=== PATIENT | female | born 1955 | race Caucasian/White ===

== ENCOUNTER 2022-06-27 08:05 | Inpatient (IN) | payer MEDICARE, BC, SELFPAY ==
--- OUTSIDE RECORDS SUMMARY | 2022-05-28 09:44 | XMS_ITS | Clinical Summary ---
:1955 Author Organization [employer] [facility] [place] [address] Care Team Providers Name Role Phone Kayla Muniz DO Primary Care Provider Allergies No known active allergies Medications Medication Sig Dispensed Refills Start End Status Date Date cholecalciferol Take 1 0 Acti ve (VITAMIN D) 1,000 unit capsule by 5 capsule mouth once daily. ibuprofen (ADVIL; Take 1 0 Ac tive MOTRIN) 400 mg tablet by 9 tabletIndications: mouth every Uterovaginal prolapse, 6 hours. complete triamcinolone Apply 454 g 0 Active (ARISTOCORT; KENALOG) topicaly 1 0.1 % cream twice daily fluorouracil 5% topical Apply a 40 g 1 Active (EFUDEX) 5 % cream light coat 1 to arms and chest one day per week. amLODIPine (NORVASC) 5 Take 1 90 Tablet 3 Active mg tabletIndications: Tablet (5 2 Essential hypertension mg) by mouth once daily. hydroCHLOROthiazide Take 1 30 Tablet 0 Active (HCTZ) 25 mg Tablet (25 2 tabletIndications: mg) by mouth Essential hypertension once daily. losartan (COZAAR) 50 mg Take 1 180 Tablet 3 Active tabletIndications: Tablet (50 2 Essential hypertension mg) by mouth two times daily. finasteride (PROSCAR) 5 Take 1 90 Tablet 2 Active mg tablet Tablet (5 2 mg) by mouth once daily. finasteride (PROSCAR) 5 Take 90 Tablet 2 Discontinued mg tablet one-half 1 022 (Reorder tablet daily (E-canc el not sent)) amLODIPine (NORVASC) 5 Take 1 90 Tablet 3 Discontinued mg tabletIndications: Tablet (5 1 022 (Reorder Essential hypertension mg) by mouth (E-cancel not once daily. sent)) losartan (COZAAR) 50 mg Take 1 180 Tablet 3 05/18 Discontinued tabletIndications: Tablet (50 1 022 (Reorder Essential hypertension mg) by mouth (E-cancel not 2 times sent)) daily. hydroCHLOROthiazide Take 1 30 Tablet 0 Discontinued (HCTZ) 25 mg Tablet (25 2 022 (Reord er tabletIndications: mg) by mouth (E-cancel not Essential hypertension once daily. 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 05/10/2019 HTN (hypertension) 02/10/2013 Eczema 02/10/2013 Myopia 09/14/2011 Encounters Date Type Specialty Care Team Description 05/18/2022 Preop Visit Kayla Muniz DO Pre-O p Exam (Bilateral knee surgery 05/28/20) 05/18/2022 Travel from Last 3 Months Immunizations Name Administration Dates Next Due Influenza, IIV3 (Age >=3 years) 05/31/2009 Influenza, IIV4 07/04/2017, 06/12/2016 Influenza, IIV4 (=>6mos) MDV 07/04/2017 Influenza, Inactivated IIV3 (Age 65+ Years) Preserv 07/03/20 19, 08/15/2018 Free Pneumococcal Poly,23-Valent (Pneumovax) 07/29/2020 Td, Preservative Free (age >= 7 Years) 08/30/2006 Tdap 07/16/2014 Tuberculin (PPD) 03/02/2015 Zoster (Zostavax-ZVL, live) 07/16/2014 Family History Medical History Relation Name Comments Hypertension Brother Heart attack Father Hypertension Father Hypertension Maternal Grandfather Hypertension Maternal Grandmother Hypertension Mother Hypertension Paternal Grandfather Hypertension Paternal Grandmother Hypertension Sister sisters x2 Heart attack Son Relation Name Status Comments Brother Father Maternal Grandfather Maternal Grandmother Mother Paternal Grandfather Paternal Grandmother Sister Son ND Social History Tobacco Use Types Packs/Day Years Used Date Never Smoker Smokeless Tobacco: Never Used Tobacco Cessation: Counseling Given: Yes Alcohol Use Standard Drinks/Week Comments Yes 0 (1 standard drink = 0.6 oz pure alcoho l) occasional Alcohol Habits Answer Date Recorded How often do you have a drink containing alcohol? Not asked How many drinks containing alcohol do you have on a typical Not asked day when you are drinking? How often do you have six or more drinks on one occasion? No t asked Comment: occasional 02/10/2013 Sex Assigned at Date Recorded Not on file COVID-19 Exposure Response Date Recorded In the last 10 days, have you been in contact with No / Unsu re 05/18/2022 10:39 AM CDT someone who was confirmed or suspected to have Coronavirus/COVID-19? Obstetrics History Para Term AB IAB SAB Ectopic Multiple Living Live Births 3 3 3 3 3 Date Outcome GA Total Labor/2nd/3rd Weight Sex Delivery Anes PTL Jackie A 1 A5 Name Clin Labor 06/22 Term 4h 00m 3.83 kg Vag Emily /1975 (8 lb 7 ng oz) Comments: episiotomy 10/21/1977 Term 2h 00m 4.62 kg (10 lb 3 oz) Vag L iving 10/06/1978 Term 2h 00m 4.51 kg (9 lb 15 oz) Vag L iving Last Filed Vital Signs Vital Sign Reading Time Taken Comments Blood Pressure 168/82 05/18/2022 10:51 AM CDT Pulse 78 05/18/2022 10:51 AM CDT Temperature 36.9 ??C (98.5 ??F) 05/18/2022 10:51 AM CDT Respiratory Rate 16 07/31/2019 8:[address] [facility] Oxygen Saturation 99% 05/18/2022 10:51 AM CDT Inhaled Oxygen Concentration - - Weight 82.2 kg (181 lb 4.8 oz) 05/18/2022 10:51 AM CDT Height 151 cm (4' 11.45) 08/21/2021 10:[address] [facility] Body Mass Index 36.07 08/21/2021 10:[address] [facility] Plan of Treatment Health Maintenance Due Date Last Done Comments COVID-19 vaccine series (#1) 1955 Zoster (shingles) series for age 0109/10/2014 07/16/2014 50+ (2 of 3) Pneumococcal series for age 65+ (2 07/29/2021 07/29/2020 - PCV) Influenza for age 65+ 05/10/2022 07/03/2019, 08/15/2018, 07/04/2017, Additional history exists BMI (ht and wt on same day) for 08/21/2022 08/21/2021, 07/11, age 18+ 07/03/2019, Additional history exists Depression screening for age 12+ 08/21/2022 08/21/2021, , 08/19/2018, Additional history exists Medicare Wellness for age 65+ 08/21/2022 08/21/2021 Mammogram for age 45-75 09/05/2022 09/05/2021, 08/16/2014 Fecal testing non-DNA 09/06/2022 09/06/2021, 08/25/2020, (FIT,FOBT,iFOBT) for age 45-75 07/09/2019, Addit ional history exists Tetanus booster 07/16/2024 07/16/2014, 08/30/2006 Lipids for age 45-75 09/05/2026 09/05/2021, 07/29/2020, 07/03/2019, Additional history exists Tdap Completed 07/16/2014 Hepatitis C screening for age Completed 07/03/2019 18-79 DEXA/DXA scan for age 65+ Completed 09/05/2021 Procedures Procedure Name Priority Date/Time Associated Comments Diagnosis EKG 12 LEAD Routine 05/18/2022 1:42 PM Pre-op exam CDT UT READING EKG - NO Routine 05/18/2022 1:41 PM Pre-op exam CHARGE, COMP ONLY CDT HEMOGLOBIN Routine 05/18/2022 11:55 AM Pre-op exam Results for this CDT procedure are i n the results section. BASIC METABOLIC Routine 05/18/2022 11:55 AM Pre-op exam Resul ts for this PANEL CDT procedure are i n the results section. from Last 3 Months Results EKG 12 LEAD (05/18/2022 1:42 PM CDT) Narrative This result has an attachment that is no t available. Kayla Muniz DO EKG ORD UT READING EKG - NO CHARGE, COMP ONLY (05/18/2022 1:41 PM CDT) Kayla Muniz DO PB - PROVIDER READINGS HEMOGLOBIN (05/18/2022 11:55 AM CDT) P athologist Signature HEMOGLOBIN 13.2 12.0 - 16.0 05/18/2022 [facility] g/dL 11:58 AM CDT [facility] MCV 94 80 - 100 fL 05/18/2022 [facility] 11:58 AM CDT [facility] Specimen Anatomical Collection Method / Collection Time Recei melinda Time (Source) Location / Volume Laterality Blood BLOOD SPECIMEN / Venipuncture / 05/18/2022 11:55 05/18 Unknown Unknown AM CDT 11:55 AM CDT Kayla Muniz DO HEMATOLOGY Performing Organization Address City/State/ZIP Code Phon e Number [facility] [email or web address] [address] [place] [address] (ABNORMAL) BASIC METABOLIC PANEL (05/18/2022 11:55 AM CDT) Analysis Performed At Patho logist Time Signature SODIUM 139 135 - 145 05/19/2022 [facility] mmol/L 2:53 AM CDT [facility] POTASSIUM 3.9 3.5 - 5.0 05/19/2022 [facility] mmol/L 2:53 AM CDT [facility] CHLORIDE 106 98 - 110 05/19/2022 [facility] mmol/L 2:53 AM CDT [facility] CO2,TOTAL 23 21 - 31 05/19/2022 [facility] mmol/L 2:53 AM CDT [facility] ANION GAP 10 5 - 18 05/19/2022 [facility] 2:53 AM CDT [facility] GLUCOSE 101 (H) 65 - 100 05/19/2022 [facility] mg/dL 2:53 AM CDT [facility] CALCIUM 9.9 8.5 - 10.5 05/19/2022 [facility] mg/dL 2:53 AM CDT [facility] BUN 20 8 - 25 05/19/2022 [facility] mg/dL 2:53 AM CDT [facility] CREATININE 0.79 0.57 - 05/19/2022 [facility] 1.11 mg/dL 2:53 AM CDT [facility] BUN/CREAT RATIO 25 (H) 10 - 20 05/19/2022 [facility] 2:53 AM CDT [facility] eGFR 81 (L) >90 05/19/2022 [facility] mL/min/1.7 2:53 AM CDT [facility] Comment: As of 2021, eGFR is calcu lated by the CKD-EPI creatinine equation without race adjustment. eGFR can be inf luenced by muscle mass, exercise, and diet. The reported eGFR is an estimation only and is only applicable if the renal function is stable. Specimen Anatomical Collection Method / Collection Time Recei melinda Time (Source) Location / Volume Laterality Blood BLOOD SPECIMEN / Venipuncture / 05/18/2022 11:55 05/18 Unknown Unknown AM CDT 11:55 AM CDT Kayla Muniz DO CHEMISTRY Performing Organization Address City/State/ZIP Code Phon e Number [facility] [address] [place] [address] [facility] from Last 3 Months Insurance Payer Benefit Plan / Subscriber ID Effective Dates Phone Addre ss Type Group MEDICARE PART B MEDICARE PART B [id number] 2018-Presen ATTN: CLAIMS - HB USE ONLY HB ONLY t [address] [place] [address] MEDICARE PART A MEDICARE PART A [id number] 2019-Pres ATTN: CLAIMS - HB USE ONLY HB ONLY ent [address] [place] [address] BLUE CROSS [place] BLUE CROSS [id number] 2018-Presen [address] [address] [address] [place], [place] ONLY [id number] BLUE CROSS BLUE CROSS [id number] 2018-Presen [address] [address] [place], [place] ONLY [id number] Advance Directives Latest Code Status on File Code Status Date Activated Date Inactivated Comments Full Code 07/30/2019 5:36 AM 07/31/2019 11:53 AM Care Teams Photoresist Printer Relationship Specialty Start Date End Date Kayla Muniz DO PCP - General Family Practice 09/30/[address] [place] [address]
[2022-06-27] VITALS (27 sets, daily range): BP systolic 71–151; BP diastolic 48–94; PULSE 63–111; RESP 12–18; TEMP 35.6–36.6; O2SAT 92–98; BMI 35.4
[2022-06-27] MEDS: CELECOXIB 200 MG CAPSULE PO ×2 (08:30→20:14)
[2022-06-27] MEDS: ACETAMINOPHEN 500 MG TABLET 1000 MG PO ×2 (08:30→17:24)
[2022-06-27] MEDS: LACTATED RINGERS 1000 ML 1,000 ML 100 ML IV ×2 (08:45→12:17)
[2022-06-27] MEDS: SODIUM CHLORIDE 0.9 % (FLUSH) 10 ML SYRINGE IVF (08:45)
[2022-06-27] MEDS: fentaNYL 100 MCG/2 ML inj IVP (10:30)
[2022-06-27] MEDS: MIDAZOLAM HCL 1 MG/ML inj IVP (10:30)
--- NOTE | 2022-06-27 10:32 | SUR.PREOP ---
TIME?OUT:?1029 PT/Tennille ESPOSITO RN/Tavia NATH MDA?VERIFICATION?OF?SURGICAL?SITE,?PROCEDURE,?AND?CONSENT OBTAINED?PRIOR?TO?INVASIVE?PROCEDURE.
--- NOTE | 2022-06-27 11:05 | W.PM.NB ---
Nerve Block Nerve Block Date Seen: 06/27/22 Type of block requested by surgeon for post-operative analgesia: adductor canal Side: bilateral Time out performed: Yes Verification of patient name: Yes Verification of date of : Yes Site marking: site marked Name of person performing procedure: Keron Continuous monitoring Was continuous monitoring of O2 sat, B/P, potline monitor, recorded every 15 minutes?: Yes Procedure Checklist: sterile prep, needles and gloves Ultrasound guided. Images saved: Yes Medications given in 5ml increments after negative aspiration: Marcaine %: 0.25 mL: 46 Needle gauge: 20 and Exparel mL: 14 Needle gauge: 20 Patient tolerated procedure well: Yes Additional comments: Needle noted adjacent to nerve Block Charges Block Charge (with Pro Fee): Femoral Nerve Use of Ultrasound Machine for Block: Yes- US Guidance/pain block
--- NOTE | 2022-06-27 11:06 | W.PM.NB ---
Nerve Block Nerve Block Date Seen: 06/27/22 Type of block requested by surgeon for post-operative analgesia: geniculars Side: bilateral Time out performed: Yes Verification of patient name: Yes Verification of date of : Yes Site marking: site marked Name of person performing procedure: Keron Continuous monitoring Was continuous monitoring of O2 sat, B/P, environmental monitoring technician, recorded every 15 minutes?: Yes Procedure Checklist: sterile prep, needles and gloves Medications given in 5ml increments after negative aspiration: Marcaine %: 0.25 mL: 14 Needle gauge: 25 and Exparel mL: 6 Needle gauge: 25 Patient tolerated procedure well: Yes Block Charges Block Charge (with Pro Fee): Genicular Nerve Block Use of Ultrasound Machine for Block: No
[2022-06-27] MEDS: CEFAZOLIN 2 GM in 0.9 % SODIUM CHLORIDE Mini-bag 100 ML IVPB ×2 (11:44→17:48)
--- NOTE | 2022-06-27 11:56 | CRLHL7_ITS ---
For Patients: As a result of the Cures Act, medical imaging exams and procedure reports are released immediately into your electronic medical record. You may view this report before your referring provider. If you have questions, please contact your health care provider. Indication: POST-OP Technique: Two views right knee Findings/Impression: Hardware from a right total knee arthroplasty is in satisfactory position. Bone alignment is normal. No sign of acute fracture. Postop changes are within normal limits. Dictated by Caleb Tompkins MD @ 06/28/2022 10:13:53 AM (Electronically Signed)
--- NOTE | 2022-06-27 11:56 | CRLHL7_ITS ---
For Patients: As a result of the Cures Act, medical imaging exams and procedure reports are released immediately into your electronic medical record. You may view this report before your referring provider. If you have questions, please contact your health care provider. Indication: POST-OP Technique: Two views left knee Findings/Impression: Hardware from a left total knee arthroplasty is in satisfactory position. Bone alignment is normal. No sign of acute fracture. Postop changes are within normal limits. Dictated by Caleb Tompkins MD @ 06/28/2022 10:13:02 AM (Electronically Signed)
--- NOTE | 2022-06-27 13:22 | REH.PT ---
Will start PT 10 AM
--- NOTE | 2022-06-27 15:53 | PM.ORPRC ---
Procedure Note Date of procedure: 06/27/22 Procedure: PREOPERATIVE DIAGNOSIS: 1. Bilateral knee osteoarthritis, primary, severe POSTOPERATIVE DIAGNOSIS: 1. Bilateral knee osteoarthritis, primary, severe PROCEDURE: 1. Bilateral total knee arthroplasty SURGEON: Darwin Stark MD. NEWSPAPER EDITOR MANAGING: Lawrence Gray PA-C - Of note, an assistant to the vice president was critical for this case to aid in patient positioning, tissue retraction, limb manipulation/positioning, patient safety, and closure. ANESTHESIA: Spinal anesthetic IMPLANTS: DePuy J&J all cemented TKA - Attune Right: PS femur size 5 narrow, tibia size 3, 5 mm poly spacer, 32 mm patella Left: PS femur size 4 narrow, tibia size 3, 5 mm poly spacer, 32 mm patella TOURNIQUET: 97 minutes on the right at 300 torr; 98 minutes on the left at 300 torr COMPLICATIONS: None evident INDICATIONS: The patient is a pleasant 67 old female who has experienced severe bilateral knee pain and difficulty bearing weight. Workup included x-rays which revealed severe osteoarthrosis in both knees. Given the deformity, the dysfunction, and the pain, as well as the failure of nonoperative management, recommendation was made for surgery. DESCRIPTION OF PROCEDURE: Following a thorough discussion of risks, benefits, and alternatives consent was obtained and the right knee was marked. The patient was brought to the operating room and placed supine on the operating table. Induction of anesthesia was undertaken. 2 g IV Ancef and 1 g tranexamic acid was administered within 1 hr of incision preoperatively. Proper time-out was performed identifying proper patient, site, procedure. Bilateral operative extremities were prepped and draped in the appropriate sterile fashion using ChloraPrep after the patient was positioned supine with all bony prominences well padded. The left leg was initially covered with an extra draped and we began on the right TKA. A longitudinal, anterior, midline skin incision was made starting approximately 3cm proximal to the superior pole of the patella and advanced distal to the tibial tubercle. Full-thickness chondral loss within the medial compartment with erosion in the medial femur and tibia. Subchondral sclerotic bone as well. Significant chondromalacia remaining compartments also noted. Large effusion upon entering the joint. A median parapatellar arthrotomy was created and a large effusion evacuated. A medial subperiosteal sleeve was created with knife, duron elevator and curved osteotome. The retropatellar fat pad was resected and the synovium in the suprapatellar pouch excised to visualize the anterior femoral cortex. Femoral preparation was performed via an intramedullary guide. Step drill allowed access into the femoral canal. The canal was suctioned, irrigated, suction, and this process repeated. The distal cutting guide was placed with 5 ? of valgus and 11 mm cut on the distal femur due to flexion contracture of 5-7 degrees. Femur was sized using a posterior referencing guide in 3? of external rotation based on the posterior femoral condylar axis and trans epicondylar access/Whitesides line . This found have a best fit with the sizing noted above. The 4 in 1 cutting block was then placed, and the distal femur shaped accordingly. The box cut was then created and the trial implant inserted to confirm appropriate fit. We turned our attention to the proximal tibia. Extramedullary guide was utilized for cutting with the goal of being 90 degree cut from the mechanical axis of the tibia in the varus/valgus plane utilizing tibial crest as the primary alignment. Initially a 1 mm resection was performed from the medial tibial plateau. Ultimately, balancing was achieved in both flexion and extension in both varus and valgus. The knee was able to achieve full extension as well comfortably. The patella was initially measured and found have a thickness of 20 mm. It was resected back to approximately 14 mm. It was sized to be a best fit with as noted above. This was drilled, trial placed. All trials were placed and found to have an excellent stability and balance. At this stage, trial implants were removed, the knee was thoroughly irrigated with normal saline after injecting the posterior capsule with Marcaine with epi, and the cement was mixed. After irrigation, the knee was thoroughly dried, and cement placed, with the real tibial and femoral implants placed along with the patella. Trial poly spacer was placed and confirmed to have excellent range of motion and full extension, and the real poly spacer opened and inserted. All extra cement was removed, and a 3 min Betadine soak performed. Finally, a final irrigation round with normal saline was performed. Closure performed with 0 Vicryl and #0 Stratafix for the quad tendon/retinaculum. The tourniquet was deflated, and 2-0 Vicryl for the subcutaneous and 4-0 Monocryl for subcuticular closure was completed. Dressings were applied and attention was turned to the contralateral left side. This same process was utilized on the contralateral side including same approach, same dissection, same femoral tunnel access and irrigation, extramedullary guide for the tibia, with a similar process for cutting depths, and sizing of femoral & tibial implants. Of note, this contralateral knee showed again severe medial compartment chondral loss including erosion in the medial femur and tibia. Significant chondromalacia remaining 2 compartments also noted. Again large effusion encountered. The knee was placed through range of motion & found to be stable to varus and valgus stress at 0 and 30? as well as with anterior vending machine coin collector all ranges at 15 -30 degree increments. Again a 3 min Betadine soak was performed when the real poly had been opened and inserted, and all remaining cement had been removed. Finally, final round of irrigation was completed with normal saline and closure performed as above with 0 Vicryl, # 0 Stratafix for the quad tendon/retinaculum, 2-0 Vicryl for subcutaneous and 4-0 Monocryl for subcuticular closure. PLAN: 1. Weight bear as tolerated operative extremities. 2. 23 hr perioperative antibiotics. 3. Ice. 4. PT/OT consults for ambulation assistance/mobility education. 5. Social work consult for discharge planning. 6. DVT prophylaxis with at SCDs, [place] Hose, and aspirin twice daily.
--- NOTE | 2022-06-27 16:01 | W.ANESCHARGE ---
Anesthesia Charges Start Date/Time Anesthesia Start Date: 06/27/22 Anesthesia Start Time: 11:34 Stop Date/Time Anesthesia Stop Date: 06/27/22 Anesthesia Stop Time: 16:06 Summary Emergency: No
--- NOTE | 2022-06-27 16:08 | W.ANESCHARGE ---
Anesthesia Charges Start Date/Time Anesthesia Start Date: 06/27/22 Anesthesia Start Time: 11:34 Stop Date/Time Anesthesia Stop Date: 06/27/22 Anesthesia Stop Time: 16:06 Summary Emergency: No
--- NOTE | 2022-06-27 16:55 | SUR.PHASEI ---
patient met discharge criteria per anesthesia
[2022-06-27] MEDS: HYDROmorphone 0.5 mg/0.5 ml inj IVP (17:23)
--- NOTE | 2022-06-27 17:23 | PM.IMPN1 ---
Progress Note: A&P Assessment and plan (1) Osteoarthritis of knees, bilateral: Problem details: Severe - [id number]-[id number] -- Varus malalignement Status: Acute (2) Hypertension: Status: Acute (3) Obesity (BMI 30-39.9): Problem details: BMI 35.2 Status: Acute Plan 1. POD #0 s/p bilateral total knee arthoplasty under spinal anesthesia -pain control; diet; dvt ppx per surgery -bmp and hgb in am 2. Hx of HTN; resume antihypertensives in AM 3. DVT ppx-Aspirin BID Time Spent With Patient Total time spent: 20minutes Subjective Date Seen: 06/27/22 Interval history: The patient is doing well following surgery Denies chest pain Denies nausea Denies vomiting has not ordered dinner yet Exam Narrative: Exam Narrative: Gen: No acute distress HEENT: NCAT EOMI MMM CV: RRR s1s2 L: CTAB Abd: Soft, nt, nd neuro: Alert, oriented Const: Vital Signs, click to edit/add: Vital Signs - 24 hr 06/27/22 08:38 06/27/22 10:30 06/27/22 10:35 Temperature 97.8 F Pulse Rate 111 H 88 80 Respiratory Rate 18 18 16 Blood Pressure 147/78 H 151/94 H 104/74 Blood Pressure [Ri ght Arm] Pulse Oximetry 98 97 92 Oxygen Delivery Me thod Room Air Nasal Cannula Nasal Cannula Oxygen Flow Rate 2 2 06/27/22 10:40 06/27/22 10:45 06/27/22 11:00 Temperature Pulse Rate 89 73 73 Respiratory Rate 16 16 16 Blood Pressure 108/73 112/69 126/71 Blood Pressure [Ri ght Arm] Pulse Oximetry 95 95 97 Oxygen Delivery Me thod Nasal Cannula Nasal Cannula Nasal Cannula Oxygen Flow Rate 2 2 2 06/27/22 11:15 06/27/22 16:03 06/27/22 16:05 Temperature 96.4 F L 96.4 F L Pulse Rate 79 81 66 Respiratory Rate 16 12 13 Blood Pressure 103/75 71/51 L 86/48 L Blood Pressure [Ri ght Arm] Pulse Oximetry 92 96 98 Oxygen Delivery Me thod Nasal Cannula Oxygen Flow Rate 2 06/27/22 16:10 06/27/22 16:15 06/27/22 16:20 Temperature 96.4 F L 96.4 F L 96.4 F L Pulse Rate 70 68 67 Respiratory Rate 13 14 18 Blood Pressure 102/66 112/75 120/73 Blood Pressure [Ri ght Arm] Pulse Oximetry 96 96 96 Oxygen Delivery Me thod Oxygen Flow Rate 06/27/22 16:25 06/27/22 16:30 06/27/22 16:35 Temperature 96.4 F L 96.6 F L 96.6 F L Pulse Rate 63 67 73 Respiratory Rate 15 15 15 Blood Pressure 104/63 110/74 114/50 L [facility] Pulse Oximetry 94 97 97 Oxygen Delivery Me thod Oxygen Flow Rate 06/27/22 16:40 06/27/22 16:45 Temperature 96.6 F L 96.0 F L Pulse Rate 68 69 Respiratory Rate 16 16 Blood Pressure 119/60 Blood Pressure [Ri ght Arm] 139/76 Pulse Oximetry 97 Oxygen Delivery Me thod Room Air Oxygen Flow Rate
--- NOTE | 2022-06-27 19:19 | PC.NURSE ---
Pt up to m/s floor at 1645- awake and alert. Tylenol and dilaudid given for pain. VSS - pain highest reported at 5/10 but improved with meds. Up to BR at 1830- pt insisted to walk to BR with Ax1 and tolerated this well after dangling at bedside. Surgical dressings CDI. Cryo cuff's filled at 1900. ice packs to back of knees for short time for pain relief. pt tolerating regular diet and LS CTA. Spouse, Gurjit at bedside and very supportive. Report given to MARCK Nicholas.
[2022-06-27] MEDS: SENNOSIDES 1 TAB TABLET 2 TAB PO (20:14)
[2022-06-27] MEDS: HYDROmorphone 2 MG TABLET PO (20:14)
[2022-06-27] MEDS: LOSARTAN POTASSIUM 50 MG TABLET PO (20:15)
[2022-06-27] MEDS: ASPIRIN 81 MG TABLET EC PO (20:15)
[2022-06-27] MEDS: ONDANSETRON 2 MG/ML inj 4 MG IVP (22:39)
[2022-06-28] MEDS: ACETAMINOPHEN 500 MG TABLET 1000 MG PO ×3 (00:34→13:12)
[2022-06-28] MEDS: HYDROmorphone 2 MG TABLET PO ×4 (00:35→13:13)
[2022-06-28] MEDS: CEFAZOLIN 2 GM in 0.9 % SODIUM CHLORIDE Mini-bag 100 ML IVPB ×2 (02:34→09:52)
[2022-06-28 03:00] VITALS: BP 116/75; PULSE 77; RESP 18; TEMP 36.5; O2SAT 95
[2022-06-28] MEDS: ONDANSETRON 2 MG/ML inj 4 MG IVP ×2 (06:27→10:00)
[2022-06-28 07:05] LABS: Basophils Percent Auto 0.1 % (0.0-3.0); Hematocrit 32.6 % (33.0-51.0); Hemoglobin* 10.9 gm/dL (12.0-16.0); Immature Granulocytes Abs Auto 0.03 K/uL (0.00-0.30); Mean Corpuscular HGB Conc 33 gm/dL (32-36); Mean Corpuscular Hemoglobin 31 pg (26-34); Mean Corpuscular Volume 93 fL (80-100); Neutrophils Percent Auto 85.7 % (42.0-72.0); Platelet Count* 370 K/uL (140-440); RDW Coefficient of Variation % 12.7 % (11.5-15.5); Red Blood Count 3.49 m/uL (4.00-5.20); White Blood Count* 15.67 K/uL (4.50-11.00)
[2022-06-28 07:07] LABS: Slide Review Reflex No
[2022-06-28 07:29] LABS: Potassium* 3.6 mmol/L (3.6-5.1); Sodium* 128 mmol/L (135-149)
[2022-06-28 07:32] LABS: Blood Urea Nitrogen* 18 mg/dL (7-30); Creatinine* 0.7 mg/dL (0.5-1.5); Est. Creatinine Clearance* 38.14; Estimated Glomerular Filt Rate 94 ml/min
[2022-06-28 07:45] VITALS: BP 130/78; PULSE 78; RESP 18; TEMP 36.6; O2SAT 98
[2022-06-28] MEDS: hydroCHLOROthiazide 25 MG TABLET PO (08:31)
[2022-06-28] MEDS: ASPIRIN 81 MG TABLET EC PO (08:31)
[2022-06-28] MEDS: SENNOSIDES 1 TAB TABLET 2 TAB PO (08:31)
[2022-06-28] MEDS: AMLODIPINE 5 MG TABLET PO (08:31)
[2022-06-28] MEDS: CELECOXIB 200 MG CAPSULE PO (08:31)
[2022-06-28] MEDS: LOSARTAN POTASSIUM 50 MG TABLET PO (08:31)
--- NOTE | 2022-06-28 08:54 | P.DS_ITS ---
DS: Providers Provider Date Seen: 06/28/22 Date of admission: 06/27/22 08:05 Primary care physician: Kayla Muniz DO Admitting Clinician: Darwin Stark MD Consults: PT, OT, and hospitalist team Attending Physician on discharge: Darwin Stark MD Date of Discharge: 06/28/22 DS: Diagnosis Discharge Diagnosis (1) Osteoarthritis of knees, bilateral: Status: Acute (2) Status post bilateral knee replacements: Status: Acute DS: Summary Hospital Course Hospital Course: 67-year-old female presented to the hospital on 06/27/2022 for elective bilateral TKAs. Patient did well postoperatively and comorbidities remained stable. She did quite well with therapies, was tolerating p.o. intake, and motivated for discharge on postoperative day 1. No changes made to home medications upon discharge. Prophylaxis and pain management per Orthopedic surgery team. Patient will be discharged home with routine follow-up with therapies, orthopedic surgery, and PCP. Status at Discharge Overall status at discharge: patient is progressing back to baseline Time Spent with Patient Time attestation: Total time spent providing and/or coordinating discharge services: Time spent: Less than 30 minutes Exam Narrative: Exam Narrative: GEN: Alert and oriented, sitting comfortably in bedside chair and eating breakfast HEENT: Normal external ears, EOMIs bilaterally, no scleral icterus CV: RRR, No concerning murmurs, rubs, or gallops R: LCTA bilaterally without concerning wheezing, rales, or rhonchi Ext: wwp, no concerning edema Skin: No concerning skin lesions or rashes on exposed skin Neuro: Nonfocal Psych: Appropriate Const: Vital Signs, click to edit/add: Vital Signs - 24 hr 06/27/22 10:30 06/27/22 10:35 06/27/22 10:40 Temperature Pulse Rate 88 80 89 Pulse Rate [Pulse Oximeter] Respiratory Rate 18 16 16 Blood Pressure 151/94 H 104/74 108/73 Blood Pressure [Ri ght Arm] Pulse Oximetry 97 92 95 Oxygen Delivery Me thod Nasal Cannula Nasal Cannula Nasal Cannula Oxygen Flow Rate 2 2 2 06/27/22 10:45 06/27/22 11:00 06/27/22 11:15 Temperature Pulse Rate 73 73 79 Pulse Rate [Pulse Oximeter] Respiratory Rate 16 16 16 Blood Pressure 112/69 126/71 103/75 Blood Pressure [Ri ght Arm] Pulse Oximetry 95 97 92 Oxygen Delivery Me thod Nasal Cannula Nasal Cannula Nasal Cannula Oxygen Flow Rate 2 2 2 06/27/22 16:03 06/27/22 16:05 06/27/22 16:10 Temperature 96.4 F L 96.4 F L 96.4 F L Pulse Rate 81 66 70 Pulse Rate [Pulse Oximeter] Respiratory Rate 12 13 13 Blood Pressure 71/51 L 86/48 L 102/66 Blood Pressure [Ri ght Arm] Pulse Oximetry 96 98 96 Oxygen Delivery Me thod Oxygen Flow Rate 06/27/22 16:15 06/27/22 16:20 06/27/22 16:25 Temperature 96.4 F L 96.4 F L 96.4 F L Pulse Rate 68 67 63 Pulse Rate [Pulse Oximeter] Respiratory Rate 14 18 15 Blood Pressure 112/75 120/73 104/63 Blood Pressure [Ri ght Arm] Pulse Oximetry 96 96 94 Oxygen Delivery Me thod Oxygen Flow Rate 06/27/22 16:30 06/27/22 16:35 06/27/22 16:40 Temperature 96.6 F L 96.6 F L 96.6 F L Pulse Rate 67 73 68 Pulse Rate [Pulse Oximeter] Respiratory Rate 15 15 16 Blood Pressure 110/74 114/50 L 119/60 Blood Pressure [Ri t Arm] Pulse Oximetry 97 97 97 Oxygen Delivery Me thod Oxygen Flow Rate 06/27/22 16:45 06/27/22 17:00 06/27/22 17:15 Temperature 96.0 F L 96.0 F L 96.0 F L Pulse Rate 69 Pulse Rate [Pulse Oximeter] 71 64 Respiratory Rate 16 16 16 Blood Pressure Blood Pressure [Ri ght Arm] 139/76 129/81 148/79 H Pulse Oximetry 96 95 Oxygen Delivery Me thod Room Air Room Air Room Air Oxygen Flow Rate 0 0 06/27/22 17:30 06/27/22 17:45 06/27/22 18:00 Temperature 96.1 F L 96.1 F L 96.2 F L Pulse Rate Pulse Rate [Pulse Oximeter] 68 65 68 Respiratory Rate 16 16 16 Blood Pressure Blood Pressure [Ri ght Arm] 139/65 148/79 H 132/70 Pulse Oximetry 97 95 93 Oxygen Delivery Me thod Room Air Room Air Room Air Oxygen Flow Rate 0 0 0 06/27/22 18:30 06/27/22 19:00 06/27/22 20:00 Temperature 96.2 F L 96.4 F L 97.0 F L Pulse Rate Pulse Rate [Pulse Oximeter] 75 66 75 Respiratory Rate 16 16 16 Blood Pressure Blood Pressure [Ri ght Arm] 125/70 115/66 123/82 Pulse Oximetry 96 97 94 Oxygen Delivery Me thod Room Air Room Air Room Air Oxygen Flow Rate 0 0 0 06/27/22 21:00 06/27/22 23:00 06/28/22 03:00 Temperature 97.1 F L 96.9 F L 97.7 F Pulse Rate Pulse Rate [Pulse Oximeter] 69 69 77 Respiratory Rate 16 18 18 Blood Pressure Blood Pressure [facility]] 131/73 114/57 L 116/75 Pulse Oximetry 94 98 95 Oxygen Delivery Me thod Room Air Room Air Room Air Oxygen Flow Rate 0 DS: Data Data Completed and Pending Labs on day of discharge: Labs from last 24 hours 06/28/22 06/28/22 06:30 06:30 WBC 15.67 H RBC 3.49 L Hgb 10.9 L Hct 32.6 L MCV 93 MCH 31 MCHC 33 RDW Coeff of Singh 12.7 Plt Count 370 Neut % (Auto) 85.7 H Lymph % (Auto) 7.0 L [place] % (Auto) 7.0 Eos % (Auto) 0.0 Baso % (Auto) 0.1 Neut # (Auto) 13.40 H Lymph # (Auto) 1.10 [place] # (Auto) 1.10 H Eos # (Auto) 0.00 Baso # (Auto) 0.00 Abs Immat Gran (auto) 0.03 Sodium 128 L Potassium 3.6 BUN 18 Creatinine 0.7 Estimated Creat Clear 38.14 Estimated GFR 94 Discharge Plan Discharge Disposition: Home, Self-Care Date of Admission: 06/27/22 08:05 Attending Provider on Discharge: Darwin Stark Consulting Providers: Maya Jay Primary Care Provider: Kayla Muniz Condition: Stable Anticipated Discharge Date/Time: 06/28/22 12:00 Discharge Medications: New acetaminophen 500 mg capsule 500 - 1,000 mg PO Q6H MDD 4000mg PRNQty: 100 0RF aspirin 81 mg tablet,delayed release (DR/EC) 81 mg PO BID Qty: 60 0RF Rx Instructions: Medication to help prevent blood clots postoperatively; take TWICE daily. celecoxib 100 mg capsule 100 mg PO BID Qty: 60 0RF sennosides-docusate sodium [Senna-S] 8.6-50 mg tablet 1 - 4 tab-cap PO BID PRN (Reason: constipation) Qty: 60 0RF Rx Instructions: Hold medication if experiencing loose stools. ondansetron 4 mg tablet,disintegrating 4 mg PO Q8H Qty: 15 0RF hydromorphone 2 mg tablet 2 - 4 mg PO Q6H MDD 6 Qty: 30 0RF Rx Instructions: Take as needed for postop pain: 2mg mild-moderate pain, 4mg severe pain. Wean off as tolerated. Continued finasteride 5 mg tablet 5 mg PO DAILY triamcinolone acetonide 0.1 % cream 1 applic topical BID amlodipine 5 mg tablet 5 mg PO DAILY hydrochlorothiazide 25 mg tablet 25 mg PO DAILY losartan 50 mg tablet 50 mg PO BID cholecalciferol (vitamin D3) 25 mcg (1,000 unit) tablet 1,000 unit PO DAILY fluorouracil 5 % cream 5 applic topical .One Day Per Week Rx Instructions: Apply a light coat to arms and chest one day per week. Discontinued ibuprofen [IBU] 400 mg tablet 400 mg PO Q6H PRN Discharge Orders: Discharge Order (Routine); Ordered 06/28/22 Ordered By: Lawrence Gray Patient Education: Acetaminophen (By mouth), Aspirin (By mouth), Hydromorphone (By mouth), Ondansetron (By mouth), Celecoxib (By mouth), Senna (By mouth) (Sen, Senna-lax), Knee Replacement (DC) Additional Instructions: Wound: ?Do not remove original dressing; we will remove this at first postop visit in 1 week. Only remove dressing if integrity is in question. ?No immersing wound in water; showering okay; light scrub with your hand and body soap, rinse, dab dry ?Sutures are under the skin, will dissolve; allow surgical glue to come off naturally; do not scrub the wound or apply ointments/lotions ?Call our office with any redness that streaks, excessive drainage from the wound, or wound gapping. Ice/Elevate: ?Ice as needed for swelling and discomfort (cryocuff or ice pack); elevate frequently above the heart ANA socks: ?Wear for 1 month, remove for 1 hour 3 times per day ?These are frustrating to take on/off, but are important for blood clot prevention for 1 month after surgery Blood Clot Prevention (DVT): ?Medication: 81 mg aspirin by mouth twice daily (1 month) Driving: ?Do not drive while taking narcotic pain medication ?Anticipate 4-6 weeks no driving if operative leg is driving leg Dental: ?No elective dental work for 6 months post-op. If there is an urgent/emergent dental need, contact our office for an antibiotic prescription. Smoking/Alcohol: ?Do not smoke; do no drink alcohol especially when taking postoperative oral narcotic medication Seek Care from you Primary Care Provider if you experience the following issues in the postoperative phase and beyond: ?Bacterial infections such as: pneumonia, bacterial skin infection (cellulitis), UTI, high fever, chills unrelated to the operative body part - call your primary care physician urgently for treatment in hopes to protect your health and the metal implant. Referrals: ?PT, OT per patient preference - evaluate treat total knee arthroplasty protocol (gait training, ROM, ADLs) Follow up: ?Ortho surgeon follow-up in 6 weeks; repeat radiographs three views operative knee ?PA-C visit in 1 week *If there are any acute concerns regarding your surgery, please call our orthopedic clinic ([phone]) Activity Level: Activity as Tolerated, Weight Bearing as Tolerated, Use Cane and Use Walker Discharge Diet: Regular Follow Up Appointments: Kayla Muniz DO [Primary Care Provider] - (Schedule appointment as needed) Lawrence Gray PA-C [Physician Nylon Machine Operator] - 07/03/22 1:00 pm ([facility]) Forms: [employer] Info Instructions
--- NOTE | 2022-06-28 09:02 | PC.SOCIAL ---
Met with pt in pt's room. Pt states that she is ready to go home. Pt informed that she has several supportive family members that will assist her in recovery. Pt states that her home is all on one level and there are no stairs at all. Pt states that family has planned all her meal times for her also. Informed pt that if she is in need of anything she can reach out to the social work department.
[2022-06-28 11:00] VITALS: BP 123/79; PULSE 80; RESP 18; TEMP 36.4; O2SAT 97
--- NOTE | 2022-06-28 13:44 | PM.ORPN ---
Subjective Subjective Date Seen: 06/28/22 Principal diagnosis: Status postop day 1 bilateral total knee arthroplasty Interval history: Patient reports doing quite well. No acute events over night. Some nausea associated with activity; had a small experience with lightheadedness early in the morning which has since resolved. Jarvis helped with nausea as well as aroma therapy Pain managed with scheduled /PRN medications and ice. She is using Dilaudid for pain management. DVT prophylaxis 81 mg aspirin by mouth twice daily, bilateral knee high Channing stockings, and SCDs. Denies fevers, chills, aches, vomiting, CP, SOB/GONSALVES, tachycardia. Ortho Exam Narrative Exam Narrative: -Patient appears comfortable in bed; no apparent acute distress -Alert and oriented times 3 -bilateral knees moderately swollen; soft tissues supple; no ecchymosis; no erythematous streaking Warmth appropriate -Surgical dressings are clean, dry, intact; no drainage -Bilateral calfs soft; no significant swelling, edema, tenderness, erythema, discoloration, warmth, or palpable cords -bilateral 2+ DP/PT pulses, intact dermatomes and myotomes distally (5/5 strength) Const Vital Signs, click to edit/add: Vital Signs - 24 hr 06/27/22 16:03 06/27/22 16:05 06/27/22 16:10 Temperature 96.4 F L 96.4 F L 96.4 F L Pulse Rate 81 66 70 Pulse Rate [Pulse Oximeter] Respiratory Rate 12 13 13 Blood Pressure 71/51 L 86/48 L 102/66 Blood Pressure [Right Arm] Pulse Oximetry 96 98 96 Oxygen Delivery Method Oxygen Flow Rate 06/27/22 16:15 06/27/22 16:20 06/27/22 16:25 Temperature 96.4 F L 96.4 F L 96.4 F L Pulse Rate 68 67 63 Pulse Rate [Pulse Oximeter] Respiratory Rate 14 18 15 Blood Pressure 112/75 120/73 104/63 Blood Pressure [Right Arm] Pulse Oximetry 96 96 94 Oxygen Delivery Method Oxygen Flow Rate 06/27/22 16:30 06/27/22 16:35 06/27/22 16:40 Temperature 96.6 F L 96.6 F L 96.6 F L Pulse Rate 67 73 68 Pulse Rate [Pulse Oximeter] Respiratory Rate 15 15 16 Blood Pressure 110/74 114/50 L 119/60 Blood Pressure [Right Arm] Pulse Oximetry 97 97 97 Oxygen Delivery Method Oxygen Flow Rate 06/27/22 16:45 06/27/22 17:00 06/27/22 17:15 Temperature 96.0 F L 96.0 F L 96.0 F L Pulse Rate 69 Pulse Rate [Pulse Oximeter] 71 64 Respiratory Rate 16 16 16 Blood Pressure Blood Pressure [Right Arm] 139/76 129/81 148/79 H Pulse Oximetry 96 95 Oxygen Delivery Method Room Air Room Air Room Air Oxygen Flow Rate 0 0 06/27/22 17:30 06/27/22 17:45 06/27/22 18:00 Temperature 96.1 F L 96.1 F L 96.2 F L Pulse Rate Pulse Rate [Pulse Oximeter] 68 65 68 Respiratory Rate 16 16 16 Blood Pressure Blood Pressure [Right Arm] 139/65 148/79 H 132/70 Pulse Oximetry 97 95 93 Oxygen Delivery Method Room Air Room Air Room Air Oxygen Flow Rate 0 0 0 06/27/22 18:30 06/27/22 19:00 06/27/22 20:00 Temperature 96.2 F L 96.4 F L 97.0 F L Pulse Rate Pulse Rate [Pulse Oximeter] 75 66 75 Respiratory Rate 16 16 16 Blood Pressure Blood Pressure [Right Arm] 125/70 115/66 123/82 Pulse Oximetry 96 97 94 Oxygen Delivery Method Room Air Room Air Room Air Oxygen Flow Rate 0 0 0 06/27/22 21:00 06/27/22 23:00 06/28/22 03:00 Temperature 97.1 F L 96.9 F L 97.7 F Pulse Rate Pulse Rate [Pulse Oximeter] 69 69 77 Respiratory Rate 16 18 18 Blood Pressure Blood Pressure [Right Arm] 131/73 114/57 L 116/75 Pulse Oximetry 94 98 95 Oxygen Delivery Method Room Air Room Air Room Air Oxygen Flow Rate 0 Assessment and Plan Assessment and plan (1) Osteoarthritis of knees, bilateral: Status: Acute (2) Status post bilateral knee replacements: Problem details: POD 1 bilateral total knee arthroplasties Status: Acute Plan - Complete 23 hour perioperative antibiotics. - PT/OT consult for education and assistance. - Social work consult for discharge planning - Prescribed analgesics as needed - Dilaudid, acetaminophen, Celebrex - DVT prophylaxis: 81 mg aspirin by mouth twice daily, bilateral knee high Channing Hose stockings and SCDs - Anticipation is for discharge to home with family 06/28/2022 if the patient remains medically stable, pain is controlled, and they are safe with mobilization. Explained to the patient that since she had bilateral knees, would not be surprising if she needed 1 more day of recovery at the hospital. She would prefer going home at this time.
--- NOTE | 2022-06-28 13:50 | P.DS_ITS ---
DS: Providers Provider Date Seen: 06/28/22 Date of admission: 06/27/22 08:05 Primary care physician: Kayla Muniz DO Admitting Clinician: Darwin Stark MD Consults: 06/27/22 17:03 Consult to Occupational Therapy [CONS] Routine Comment: Reason(s) for OT Consult:: ADLs Prior to Discharge Any Restrictions?:: See Comment Comment: See nursing activity order for any restrictions. Consult to Physical Therapy [CONS] Routine Comment: Ambulate in the bates today. Reason(s) for PT Consult:: TKA TX Protocol POD#0 Any Restrictions?:: See Comment Comment: See nursing activity order for any restrictions. Consult to Physician [CONS] Routine Comment: Consulting Provider: Hospitalists Has provider been notified: No Consult to Medical Artist [CONS] Routine Comment: Reason for Consult:: Discharge Planning Needs Attending Physician on discharge: Darwin Stark MD Date of Discharge: 06/28/22 DS: Diagnosis Discharge Diagnosis (1) Status post bilateral knee replacements: Status: Acute Problem details: POD 1 bilateral total knee arthroplasties DS: Summary Hospital Course Hospital Course: The patient has a history of bilateral knee osteoarthritis, primary, severe. After appropriate preoperative evaluation, the patient underwent bilateral total knee arthroplasty. Postoperatively given anticoagulation for deep vein thrombosis prophylaxis - 81 mg aspirin by mouth twice daily. They progressed to PT/OT and were felt ready and prepared for discharge to home with appropriate pain medication and anticoagulation medications. Status at Discharge Functional status at discharge: uses cane/walker Overall status at discharge: patient is progressing back to baseline Time Spent with Patient Time attestation: Total time spent providing and/or coordinating discharge services: Exam Const: Vital Signs, click to edit/add: Vital Signs - 24 hr 06/27/22 16:03 06/27/22 16:05 06/27/22 16:10 Temperature 96.4 F L 96.4 F L 96.4 F L Pulse Rate 81 66 70 Pulse Rate [Pulse Oximeter] Respiratory Rate 12 13 13 Blood Pressure 71/51 L 86/48 L 102/66 Blood Pressure [Ri ght Arm] Pulse Oximetry 96 98 96 Oxygen Delivery Me thod Oxygen Flow Rate 06/27/22 16:15 06/27/22 16:20 06/27/22 16:25 Temperature 96.4 F L 96.4 F L 96.4 F L Pulse Rate 68 67 63 Pulse Rate [Pulse Oximeter] Respiratory Rate 14 18 15 Blood Pressure 112/75 120/73 104/63 Blood Pressure [Ri ght Arm] Pulse Oximetry 96 96 94 Oxygen Delivery Me thod Oxygen Flow Rate 06/27/22 16:30 06/27/22 16:35 06/27/22 16:40 Temperature 96.6 F L 96.6 F L 96.6 F L Pulse Rate 67 73 68 Pulse Rate [Pulse Oximeter] Respiratory Rate 15 15 16 Blood Pressure 110/74 114/50 L 119/60 Blood Pressure [Ri ght Arm] Pulse Oximetry 97 97 97 Oxygen Delivery Me thod Oxygen Flow Rate 06/27/22 16:45 06/27/22 17:00 06/27/22 17:15 Temperature 96.0 F L 96.0 F L 96.0 F L Pulse Rate 69 Pulse Rate [Pulse Oximeter] 71 64 Respiratory Rate 16 16 16 Blood Pressure Blood Pressure [Ri ght Arm] 139/76 129/81 148/79 H Pulse Oximetry 96 95 Oxygen Delivery Me thod Room Air Room Air Room Air Oxygen Flow Rate 0 0 06/27/22 17:30 06/27/22 17:45 06/27/22 18:00 Temperature 96.1 F L 96.1 F L 96.2 F L Pulse Rate Pulse Rate [Pulse Oximeter] 68 65 68 Respiratory Rate 16 16 16 Blood Pressure Blood Pressure [Ri ght Arm] 139/65 148/79 H 132/70 Pulse Oximetry 97 95 93 Oxygen Delivery Me thod Room Air Room Air Room Air Oxygen Flow Rate 0 0 0 06/27/22 18:30 06/27/22 19:00 06/27/22 20:00 Temperature 96.2 F L 96.4 F L 97.0 F L Pulse Rate Pulse Rate [Pulse Oximeter] 75 66 75 Respiratory Rate 16 16 16 Blood Pressure Blood Pressure [Ri ght Arm] 125/70 115/66 123/82 Pulse Oximetry 96 97 94 Oxygen Delivery Me thod Room Air Room Air Room Air Oxygen Flow Rate 0 0 0 06/27/22 21:00 06/27/22 23:00 06/28/22 03:00 Temperature 97.1 F L 96.9 F L 97.7 F Pulse Rate Pulse Rate [Pulse Oximeter] 69 69 77 Respiratory Rate 16 18 18 Blood Pressure Blood Pressure [Ri ght Arm] 131/73 114/57 L 116/75 Pulse Oximetry 94 98 95 Oxygen Delivery Me thod Room Air Room Air Room Air Oxygen Flow Rate 0 DS: Data Data Completed and Pending Labs on day of discharge: Labs from last 24 hours 06/28/22 06/28/22 06:30 06:30 WBC 15.67 H RBC 3.49 L Hgb 10.9 L Hct 32.6 L MCV 93 MCH 31 MCHC 33 RDW Coeff of Singh 12.7 Plt Count 370 Neut % (Auto) 85.7 H Lymph % (Auto) 7.0 L [place] % (Auto) 7.0 Eos % (Auto) 0.0 Baso % (Auto) 0.1 Neut # (Auto) 13.40 H Lymph # (Auto) 1.10 [place] # (Auto) 1.10 H Eos # (Auto) 0.00 Baso # (Auto) 0.00 Abs Immat Gran (auto) 0.03 Sodium 128 L Potassium 3.6 BUN 18 Creatinine 0.7 Estimated Creat Clear 38.14 Estimated GFR 94 Discharge Plan Discharge Disposition: Home, Self-Care Date of Admission: 06/27/22 08:05 Attending Provider on Discharge: Darwin Stark Consulting Providers: Maya Jay Primary Care Provider: Kayla Muniz Condition: Stable Anticipated Discharge Date/Time: 06/28/22 12:00 Discharge Medications: New acetaminophen 500 mg capsule 500 - 1,000 mg PO Q6H MDD 4000mg PRNQty: 100 0RF aspirin 81 mg tablet,delayed release (DR/EC) 81 mg PO BID Qty: 60 0RF Rx Instructions: Medication to help prevent blood clots postoperatively; take TWICE daily. celecoxib 100 mg capsule 100 mg PO BID Qty: 60 0RF sennosides-docusate sodium [Senna-S] 8.6-50 mg tablet 1 - 4 tab-cap PO BID PRN (Reason: constipation) Qty: 60 0RF Rx Instructions: Hold medication if experiencing loose stools. ondansetron 4 mg tablet,disintegrating 4 mg PO Q8H Qty: 15 0RF hydromorphone 2 mg tablet 2 - 4 mg PO Q6H MDD 6 Qty: 30 0RF Rx Instructions: Take as needed for postop pain: 2mg mild-moderate pain, 4mg severe pain. Wean off as tolerated. Continued finasteride 5 mg tablet 5 mg PO DAILY triamcinolone acetonide 0.1 % cream 1 applic topical BID amlodipine 5 mg tablet 5 mg PO DAILY hydrochlorothiazide 25 mg tablet 25 mg PO DAILY losartan 50 mg tablet 50 mg PO BID cholecalciferol (vitamin D3) 25 mcg (1,000 unit) tablet 1,000 unit PO DAILY fluorouracil 5 % cream 5 applic topical .One Day Per Week Rx Instructions: Apply a light coat to arms and chest one day per week. Discontinued ibuprofen [IBU] 400 mg tablet 400 mg PO Q6H PRN Discharge Orders: Discharge Order (Routine); Ordered 06/28/22 Ordered By: Lawrence Gray Patient Education: Acetaminophen (By mouth), Aspirin (By mouth), Hydromorphone (By mouth), Ondansetron (By mouth), Celecoxib (By mouth), Senna (By mouth) (Sen, Senna-lax), Knee Replacement (DC) Additional Instructions: Wound: ?Do not remove original dressing; we will remove this at first postop visit in 1 week. Only remove dressing if integrity is in question. ?No immersing wound in water; showering okay; light scrub with your hand and body soap, rinse, dab dry ?Sutures are under the skin, will dissolve; allow surgical glue to come off naturally; do not scrub the wound or apply ointments/lotions ?Call our office with any redness that streaks, excessive drainage from the wound, or wound gapping. Ice/Elevate: ?Ice as needed for swelling and discomfort (cryocuff or ice pack); elevate frequently above the heart ANA socks: ?Wear for 1 month, remove for 1 hour 3 times per day ?These are frustrating to take on/off, but are important for blood clot prevention for 1 month after surgery Blood Clot Prevention (DVT): ?Medication: 81 mg aspirin by mouth twice daily (1 month) Driving: ?Do not drive while taking narcotic pain medication ?Anticipate 4-6 weeks no driving if operative leg is driving leg Dental: ?No elective dental work for 6 months post-op. If there is an urgent/emergent dental need, contact our office for an antibiotic prescription. Smoking/Alcohol: ?Do not smoke; do no drink alcohol especially when taking postoperative oral narcotic medication Seek Care from you Primary Care Provider if you experience the following issues in the postoperative phase and beyond: ?Bacterial infections such as: pneumonia, bacterial skin infection (cellulitis), UTI, high fever, chills unrelated to the operative body part - call your primary care physician urgently for treatment in hopes to protect your health and the metal implant. Referrals: ?PT, OT per patient preference - evaluate treat total knee arthroplasty protocol (gait training, ROM, ADLs) Follow up: ?Ortho surgeon follow-up in 6 weeks; repeat radiographs three views operative knee ?[place] visit in 1 week *If there are any acute concerns regarding your surgery, please call our orthopedic clinic ([phone]) Activity Level: Activity as Tolerated, Weight Bearing as Tolerated, Use Cane and Use Walker Discharge Diet: Regular Follow Up Appointments: Kayla Muniz DO [Primary Care Provider] - (Schedule appointment as needed) Lwarence Gray PA-C [Physician Financial Analysis Advisor] - 07/03/22 1:00 pm ([facility]) Forms: [employer] Info Instructions
--- NOTE | 2022-06-28 15:58 | PC.NURSE ---
VSS AND AFEBRILE. PAIN CONTROLLED WITH DILAUDID AND TYLENOL. DRESSINGS TO BILATERAL KNEES CDI. UP WITH A1, WALKER AND GAIT BELT AND TOLERATING ACTIVITY WELL. PATIENT DID REPORT MILD NAUSEA AFTER PAIN MEDICATIONS THAT RESOLVED WITH ZOFRAN.. SALINE LOCK DC'D. REVIEWED DC INSTRUCTIONS WITH PATIENT AND HER AND BOTH DENIED QUESTIONS OR CONCERNS. REVIEWED CRYOCUFF USE WITH PATIENT'S . PATIENT DC'D HOME WITH .
== END 2022-06-28 14:08 | disposition home or self-care (01) | DRG 462 ==
PROVIDERS: Admitting Provider Orthopaedic Surgery Sports Medicine; PCP Family Medicine; Visit Provider Orthopaedic Surgery Sports Medicine
PROC: 0SRC0JZ Replacement of Right Knee Joint with Synthetic Substitute, Open Approach (ICD-10-PCS; CPT 27447; principal; 2022-06-27 10:00)
DX: Z96.653 Presence of artificial knee joint, bilateral (principal); M17.0 Bilateral primary osteoarthritis of knee; I10 Essential (primary) hypertension; E66.9 Obesity, unspecified; Z68.35 Body mass index [BMI] 35.0-35.9, adult
CPT/HCPCS: 01402; 36415; 64447; 64454; 73560; 76942; 82565; 84132; 84295; 84520; 85025; 97110; 97116; 97161; 97165; 97530; 97535; A9270; C1776; C9290; J0690; J1100; J1170; J2250; J2370; J2405; J2704; J3010; J3490; J7120

== ENCOUNTER 2023-07-18 09:08 | Outpatient (CLI) | payer MEDICARE, BC, SELFPAY | END 2023-07-18 09:09 | disposition home or self-care (01) | LOC: FRMREF 09:10 | PROVIDERS: PCP Family Medicine; Visit Provider Dermatology | DX: I10 Essential (primary) hypertension (principal); L40.9 Psoriasis, unspecified; L81.9 Disorder of pigmentation, unspecified | CPT/HCPCS: 80053 ==